=== PATIENT | male | born 1960 | race American Indian/Alaskan Native ===

== ENCOUNTER → 2020-08-20 09:51 | Outpatient (CLI) | payer OTHER | END | disposition home or self-care (01) | LOC: PPH VACUNA 09:51 | DX: Z23 Encounter for immunization (principal) ==

== ENCOUNTER 2021-04-03 09:00 | Outpatient (CLI) | payer OTHER | END 2021-04-03 09:15 | disposition home or self-care (01) | LOC: PPH VACUNA 09:00 | PROVIDERS: ATTEND Emergency Medicine Pediatric Emergency Medicine | DX: Z23 Encounter for immunization (principal) ==

== ENCOUNTER 2021-10-02 09:40 | Outpatient (CLI) | payer OTHER | END 2021-10-02 10:10 | disposition home or self-care (01) | LOC: PPH VACUNA 09:40 | PROVIDERS: ATTEND Emergency Medicine Pediatric Emergency Medicine | DX: Z23 Encounter for immunization (principal) ==

== ENCOUNTER 2022-04-08 08:29 | Outpatient (CLI) | payer OTHER | END 2022-04-08 08:45 | disposition home or self-care (01) | LOC: PPH VACUNA 08:29 | PROVIDERS: ATTEND Emergency Medicine Pediatric Emergency Medicine | DX: Z23 Encounter for immunization (principal) ==

== ENCOUNTER 2022-06-26 21:38 | Emergency (ER) | payer OTHER ==
[~2022-06-26] VITALS: Ht 188 cm; Wt 94.3 kg
[2022-06-26] MEDS ORDERED: LIPITOR40 M1 (22:43)
== END 2022-06-27 00:38 | disposition home or self-care (01) ==
LOC: ER 21:38
DX: H01.002 Unspecified blepharitis right lower eyelid (principal)